=== PATIENT | female | born 2000 | race Caucasian/White ===

== ENCOUNTER 2023-08-05 13:42 | Emergency (ER) | payer OTHER, SELFPAY ==
--- NOTE | ~2023-08-05 | XR_ITS ---
EXAMINATION: XR chest 2V DATE: 08/05/2023 14:11 INDICATION: Right chest pain. TECHNIQUE: Frontal and lateral views of the chest were obtained. COMPARISON: None. FINDINGS: There is no pneumonia, pleural effusion, or pneumothorax. The heart size is normal. IMPRESSION: 1. No acute cardiopulmonary disease. Reviewed, dictated and finalized at location A.
[2023-08-05 13:52] VITALS: BP 133/77; PULSE 90; RESP 18; TEMP 36; O2SAT 100
--- NOTE | 2023-08-05 13:53 | ECG_ITS ---
SEE SCANNED COPY FOR CONFIRMED REPORT MTDD
[2023-08-05 14:07] LABS: Basophils Percent Auto 0.3 % (0.2-1.2); Eosinophils Absolute Auto 0.2 K/mm3 (0-0.3); Eosinophils Percent Auto 1.8 % (0-4.4); Hematocrit 40.1 % (37.0-47.0); Hemoglobin 13.2 g/dL (12.0-15.0); Immature Granulocyte Absolute 0.04 K/mm3 (0.00-0.031); Immature Granulocyte Percent A 0.3 % (0-0.5); Lymphocytes Absolute Auto 3.04 K/mm3 (0.9-3.2); Lymphocytes Percent Auto 26.1 % (18.3-44.2); Mean Corpuscular HGB Conc 32.9 g/dl (32-36); Mean Corpuscular Hemoglobin 29.3 pg (26-34); Mean Corpuscular Volume 88.9 fl (80-100); Mean Platelet Volume 10.7 fl (7.4-10.4); Monocytes Absolute Auto 0.8 K/mm3 (0.1-0.6); Monocytes Percent Auto 6.7 % (2.6-8.5); Neutrophils Absolute Auto 7.5 K/mm3 (1.3-6.7); Neutrophils Percent Auto 64.8 % (45.5-73.1); Platelet Count Result 276 k/mm3 (150-375); Red Blood Count 4.51 M/mm3 (4.2-5.4); Red Cell Distribution Width 12.6 % (11.5-14.5); White Blood Count 11.6 K/mm3 (4.5-10.0)
[2023-08-05 14:31] LABS: Alanine Aminotransferase 37 U/L (6-35); Albumin Level 4.4 g/dL (3.5-5.1); Alkaline Phosphatase 67 U/L (38-126); Anion Gap 8 mmol/L (4-12); Aspartate Amino Transferase 27 U/L (14-36); Bilirubin,Total 0.9 mg/dL (0.2-1.3); Blood Urea Nitrogen 11 mg/dL (7-17); Carbon Dioxide 23 mmol/L (22-30); Chloride 104 mmol/L (98-107); Estimated CRCL calculation 150 ml/min; Estimated Glomerular Filt Rate > 60; Glucose 93 mg/dL (65-110); Lipase 156 U/L (23-300); Sodium 135 mmol/L (137-145)
[2023-08-05 14:32] LABS: Troponin I < 0.012 ng/mL (0.000-0.034)
[2023-08-05 14:37] LABS: INR 0.9; Partial Thromboplastin Time 31.1 Seconds (22.3-36.8); Prothrombin Time 12.9 Seconds (11.1-14.7)
[2023-08-05 14:45] VITALS: BP 114/87; PULSE 94; RESP 15; O2SAT 100
[2023-08-05 14:47] VITALS: BP 114/89; PULSE 92; PULSE 93; RESP 16; TEMP 36.8; O2SAT 99
[2023-08-05] MEDS: Please add drug allergy info to patient profile. 1 EACH XX (14:52)
[2023-08-05 14:56] LABS: Appearance Urine Cloudy (Clear); Bacteria Urine 3+ /hpf; Bilirubin Urine Negative (Negative); Blood Urine Negative (Negative); Color Urine Yellow (Yellow); Glucose Urine UA Negative (Negative); Ketones Urine Negative (Negative); Leukocyte Esterase Ur 1+ LEU/UL (Negative); Nitrate Urine Negative (Negative); Non Pathogenic Casts 0-2; Protein Urine Negative (Negative); RBC Urine 0-2 /hpf (0-2); Specific Grav Ur 1.019 (1.001-1.035); Squamous Epithelial Cell Urine Few /hpf (Few); Urobilinogen Urine 0.2 mg/dL (<2.0); WBC Urine 51-100 /hpf (0-3)
--- NOTE | 2023-08-05 15:04 | ED.CHESTPAIN ---
HPI - Chest Pain General Chief Complaint: Chest Pain Stated Complaint: chest pain Time Seen by Provider: 08/05/23 14:28 History of Present Illness HPI narrative: 23-year-old female history of situational anxiety presents to the emergency room for evaluation of sudden-onset right anterior chest pain. States chest pain is worse with movement and with deep inspiration. Patient denies any known injury or trauma. States the pain does not radiate. Does admit to recent URI symptoms. Denies taking any medications to alleviate her symptoms. Denies nausea vomiting, dizziness or lightheadedness. No known cardiac history Related Data Allergies Allergy/AdvReac Type Severity Reaction Status Date / Time No Known Allergies Allergy Verified 08/05/23 14:53 Review of Systems Review of Systems: CONSTITUTIONAL: Denies fever, chills, or sweats. EYES: Denies visual changes, redness, or discharge. ENT: Denies rhinorrhea, congestion, sore throat, or otalgia. CARDIOVASCULAR: Denies palpitations, or edema. RESPIRATORY: Reports cough GASTROINTESTINAL: Denies abdominal pain, nausea, vomiting, or diarrhea. GENITOURINARY: Denies dysuria or hematuria. SKIN: Denies rash or itching. MUSCULOSKELETAL: Denies back pain, joint pain, or myalgia. NEUROLOGIC: Denies headache, numbness, dizziness, or weakness. PSYCHIATRIC: Denies anxiety or depression. Exam Narrative: GENERAL: Well-appearing, well-nourished, no physical limitations, and in no acute distress. HEAD: Normocephalic, atraumatic. EYES: Conjunctivae normal, PERRLA and EOMI. NECK: Supple. CHEST: Clear to auscultation. No respiratory distress. No wheezes rales or rhonchi. Right anterior chest wall tenderness HEART: Regular rate and rhythm. No murmur heard. Normal peripheral pulses. EXTREMITIES: Normal range of motion. No edema. No clubbing or cyanosis SKIN: Warm, dry, no rash. No noted wounds NEURO: No focal deficits. Alert and oriented x3. MAEW. CN's II-XI intact bilaterally, normal gait PSYCH: Cooperative. Normal mood and affect. Course Vital Signs Vital signs: Vital Signs Temperature 36.0 C L 08/05/23 13:52 Pulse Rate 90 08/05/23 13:52 Respiratory Rate 18 08/05/23 13:52 Blood Pressure 133/77 08/05/23 13:52 Pulse Oximetry 100 08/05/23 13:52 Oxygen Delivery Room Air 08/05/23 13:52 Temperature 36.8 C 08/05/23 14:47 Pulse Rate 93 08/05/23 14:47 Respiratory Rate 16 08/05/23 14:47 Blood Pressure 114/89 08/05/23 14:47 Pulse Oximetry 99 08/05/23 14:47 Oxygen Delivery Room Air 08/05/23 14:47 MDM - Chest Pain MDM Narrative Medical decision making narrative: 23-year-old female from the emergency room with the sudden onset of right anterior chest wall pain. Patient stated a says she has recently had URI symptoms. Chest pain was worse with movement inspiration. Exam shows some volume overload. EKG signs of ischemia. Chest x-ray was negative. Presentation is not consistent with a P. Heart score was 0. Patient likely experiencing costochondritis. Discussed normal course symptoms, treat with ibuprofen. Lab Data 08/05/23 14:00 08/05/23 14:00 Labs: Lab Results 08/05/23 08/05/23 Range/Units 14:00 14:32 WBC 11.6 H (4.5-10.0) K/mm3 RBC 4.51 (4.2-5.4) M/mm3 Hgb 13.2 (12.0-15.0) g/dL Hct 40.1 (37.0-47.0) % MCV 88.9 (80-100) fl MCH 29.3 (26-34) pg MCHC 32.9 (32-36) g/dl RDW 12.6 (11.5-14.5) % Plt Count 276 (150-375) k/mm3 MPV 10.7 H (7.4-10.4) fl Immature Gran % (Auto) 0.3 (0-0.5) % Neut % (Auto) 64.8 (45.5-73.1) % Lymph % (Auto) 26.1 (18.3-44.2) % [place] % (Auto) 6.7 (2.6-8.5) % Eos % (Auto) 1.8 (0-4.4) % Baso % (Auto) 0.3 (0.2-1.2) % Lymph # (Auto) 3.04 (0.9-3.2) K/mm3 [place] # (Auto) 0.8 H (0.1-0.6) K/mm3 Eos # (Auto) 0.2 (0-0.3) K/mm3 Baso # (Auto) 0.0 (0.0-0.1) K/mm3 Abs Immat Gran (auto) 0.04 H (0.00-0.031) K/mm3 Abso
[2023-08-05 15:09] LABS: Add Urine Microscopic? YES
[2023-08-05 15:44] LABS: D Dimer 0.37 ug/mL (<0.48)
[2023-08-05 15:48] VITALS: BP 105/85; PULSE 91; RESP 19; TEMP 36.9; O2SAT 100
== END 2023-08-05 15:49 | disposition home or self-care (01) ==
PROVIDERS: Emergency Medicine; Emergency Provider Nurse Practitioner Family
DX: M94.0 Chondrocostal junction syndrome [Tietze] (principal)
CPT/HCPCS: 36415; 71046; 80053; 81001; 81025; 83690; 84484; 85025; 85380; 85610; 85730; 87077; 87086; 87088; 87186; 93005; 99284

== ENCOUNTER 2024-01-13 11:33 | Emergency (ER) | payer OTHER, SELFPAY ==
--- NOTE | ~2024-01-13 | CT_ITS ---
EXAMINATION: CT abdomen pelvis w con DATE: 01/13/2024 14:46 INDICATION: Abdominal pain. TECHNIQUE: Computed tomography (CT) of the abdomen and pelvis was performed with 100 mL Omnipaque 350 intravenous contrast. Automated exposure control and iterative reconstruction technique were employe d. The dose-length product was 1660.80 mGy-cm. COMPARISON: None. FINDINGS: The visualized portions of the lung bases are clear without pneumonia or pleural effusion. The heart size is normal. No pericardial effusion. The liver, gallbladder, spleen, pancreas, adrenal glands, and kidneys are normal. There are no dilated loops of bowel. The appendix is normal. There ar e no pathologically enlarged lymph nodes. There is physiologic fluid in the pelvis. There is mild tho racic and lumbar spondylosis. IMPRESSION: 1. No etiology for the patient's symptoms. Reviewed, dictated and finalized at location A.
--- NOTE | ~2024-01-13 | US_ITS ---
Limited Abdominal Sonogram: Real-time sonographic imaging of the right upper quadrant was performed. Clinical History: Cholecystitis Findings: The liver appears mildly echogenic, with no evidence of mass lesion or bile duct dilatatio n. Main portal vein demonstrates normal direction of flow. The gallbladder is well distended, and ron ears normal with no evidence of gallstone or wall thickening. The common bile duct measures 4 mm. Th e visualized pancreas, aorta, and IVC are unremarkable. Impression: Unremarkable gallbladder. Diffuse fatty infiltration of liver. Reviewed, dictated and finalized at location M. Impression: Unremarkable gallbladder. Diffuse fatty infiltration of liver.
[2024-01-13 11:43] VITALS: BP 115/80; PULSE 80; RESP 18; TEMP 36.6; O2SAT 100
[2024-01-13 12:42] LABS: BEDSIDEPREGUCG Negative (Negative)
[2024-01-13 12:43] LABS: Bilirubin Urine Negative (Negative); Blood Urine Negative (Negative); Color Urine Yellow (Yellow); Glucose Urine UA Negative (Negative); Ketones Urine Negative (Negative); Leukocyte Esterase Ur Negative LEU/UL (Negative); Nitrate Urine Negative (Negative); Protein Urine Negative (Negative); Specific Grav Ur 1.021 (1.001-1.035); Urobilinogen Urine 0.2 mg/dL (<2.0); pH Urine 5.5 (5.0-9.0)
[2024-01-13 12:45] LABS: Basophils Percent Auto 0.3 % (0.2-1.2); Eosinophils Absolute Auto 0.2 K/mm3 (0-0.3); Eosinophils Percent Auto 1.5 % (0-4.4); Hematocrit 41.5 % (37.0-47.0); Hemoglobin 13.6 g/dL (12.0-15.0); Immature Granulocyte Absolute 0.06 K/mm3 (0.00-0.031); Immature Granulocyte Percent A 0.5 % (0-0.5); Lymphocytes Percent Auto 21.5 % (18.3-44.2); Mean Corpuscular HGB Conc 32.8 g/dl (32-36); Mean Corpuscular Hemoglobin 29.8 pg (26-34); Mean Corpuscular Volume 90.8 fl (80-100); Monocytes Absolute Auto 0.8 K/mm3 (0.1-0.6); Monocytes Percent Auto 6.7 % (2.6-8.5); Neutrophils Absolute Auto 8.7 K/mm3 (1.3-6.7); Neutrophils Percent Auto 69.5 % (45.5-73.1); Platelet Count Result 272 k/mm3 (150-375); Red Blood Count 4.57 M/mm3 (4.2-5.4); Red Cell Distribution Width 13.2 % (11.5-14.5); White Blood Count 12.6 K/mm3 (4.5-10.0)
[2024-01-13 12:50] LABS: Add Urine Microscopic? NO; Appearance Urine Clear (Clear)
[2024-01-13 13:07] LABS: Sodium 127 mmol/L (137-145)
[2024-01-13 13:10] LABS: Alanine Aminotransferase 28 U/L (6-35); Albumin Level 4.2 g/dL (3.5-5.1); Alkaline Phosphatase 76 U/L (38-126); Anion Gap 4 mmol/L (4-12); Aspartate Amino Transferase 23 U/L (14-36); Bilirubin,Total 0.7 mg/dL (0.2-1.3); Blood Urea Nitrogen 11 mg/dL (7-17); Calcium 8.8 mg/dL (8.4-10.2); Carbon Dioxide 27 mmol/L (22-30); Chloride 96 mmol/L (98-107); Estimated CRCL calculation 128 ml/min; Estimated Glomerular Filt Rate > 60; Glucose 89 mg/dL (65-110); Lipase 136 U/L (23-300); Potassium 4.3 mmol/L (3.4-5.0)
[2024-01-13] MEDS: SODIUM CHLORIDE 0.9% IV 1,000 ML 999 ML IV CONT (13:33)
[2024-01-13] MEDS: ONDANSETRON INJ 4 MG/2 ML VIAL IV PUSH (13:33)
[2024-01-13] MEDS: MORPHINE SULFATE (*CRX) 4 MG/ML INJ IV PUSH (13:33)
[2024-01-13 13:48] VITALS: BP 105/59; PULSE 74; RESP 17; O2SAT 100
[2024-01-13 14:01] VITALS: BP 107/60; PULSE 71; RESP 22; O2SAT 100
[2024-01-13 14:31] VITALS: BP 119/72; PULSE 72; RESP 21; O2SAT 100
--- NOTE | 2024-01-13 17:01 | ED.ABDPAIN ---
HPI - Abdominal Pain General Chief Complaint: Abdominal Pain Stated Complaint: right flank Time Seen by Provider: 01/13/24 12:13 History of Present Illness HPI narrative: 23-year-old female with no pertinent past medical history presenting to the emergency department for evaluation of right-sided flank pain. Started last night without any warning and waxes and wanes throughout the day. Associated with nausea, vomiting, diarrhea. His a history of kidney stones. States this feels very different from her normal kidney stone pain. Pain somewhat radiates across her upper abdomen the right-sided but does not cross the left. No associated fever, chills, dysuria, hematuria, vaginal bleeding or discharge. Denies any chance of . Was otherwise in her normal state of health. No trauma or injuries. Related Data Allergies Allergy/AdvReac Type Severity Reaction Status Date / Time No Known Allergies Allergy Verified 01/13/24 12:08 Review of Systems Review of Systems: As reviewed above in HPI Exam Narrative: GENERAL: [Well-appearing, well-nourished, and in no acute distress.] HEAD: [Normocephalic, atraumatic.] EYES: [PERRLA and EOMI.] ENT: Nares clear, no rhinorrhea or epistaxis. Mucous membranes moist. NECK: Supple. CHEST: [Clear to auscultation. No respiratory distress.] HEART: [Regular rate and rhythm]. No murmur heard. [Normal peripheral pulses.] ABDOMEN: [Soft, nondistended], [nontender], [No rigidity or guarding] negative psoas, Rovsing, Gonsalves sign EXTREMITIES: Normal range of motion. [No edema.] SKIN: Warm, dry, no rash. NEURO: [No focal deficits]. Alert and oriented [x3.] PSYCH: [Normal mood and affect.] Course Vital Signs Vital signs: Vital Signs Temperature 36.6 C 01/13/24 11:43 Pulse Rate 80 01/13/24 11:43 Respiratory Rate 18 01/13/24 11:43 Blood Pressure 115/80 01/13/24 11:43 Pulse Oximetry 100 01/13/24 11:43 Oxygen Delivery Room Air 01/13/24 11:43 Temperature 36.6 C 01/13/24 11:43 Pulse Rate 72 01/13/24 14:31 Respiratory Rate 21 H 01/13/24 14:31 Blood Pressure 119/72 01/13/24 14:31 Pulse Oximetry 100 01/13/24 14:31 Oxygen Delivery Room Air 01/13/24 11:43 MDM - Abdominal Pain MDM Narrative Medical decision making narrative: 23-year-old female with history of kidney stones presenting to the emergency department for evaluation of right-sided flank pain that radiates towards the right upper quadrant. Was previously normal state of health. Some associated nausea, vomiting and diarrhea. History of kidney stones but states this feels very dissimilar. No fever, chills. Her vital signs are reassuring without any tachycardia, fever, blood pressure concerns or hypoxia. Workup was ordered including a CBC, CMP, lipase, urinalysis, right upper quadrant ultrasound and she was treated with morphine Zofran and fluid bolus. Differential diagnosis at this time includes cholelithiasis, cholecystitis, pyelonephritis, pyelitis, kidney stones, gastroenteritis. Workup revealed a very minor leukocytosis of 12.6 but no anemia. Electrolytes showed some dehydration with both low sodium and chloride consistent with hypovolemia although normal renal function panel in normal hepatic function panel with a negative lipase. Likely secondary to diarrhea with volume loss and not in acute process otherwise given her lack of other symptoms that would explain this. Urinalysis shows no signs of urinary tract infection or blood, ketones. Abdominal ultrasound shows an unremarkable gallbladder and diffuse fatty infiltrates of the liver. The CT scan was ordered for better delineation but showed no acute process to explain patient's symptoms. test was negative. Patient was re-evaluated had complete symptomatic resolution while here in the emergency department without any recurrence of her symptoms. She had repeat vital signs are work and reassuring. Given her unremarkable workup
== END 2024-01-13 17:23 | disposition home or self-care (01) ==
PROVIDERS: Emergency Provider Student in an Organized Health Care Education/Training Program
DX: R10.11 Right upper quadrant pain (principal); K76.0 Fatty (change of) liver, not elsewhere classified
CPT/HCPCS: 36415; 74177; 76705; 80053; 81003; 81025; 83690; 85025; 96361; 96374; 96375; 99284; J2270; J2405; J7030; Q9967

== ENCOUNTER 2024-02-05 11:02 | Emergency (ER) | payer OTHER, SELFPAY ==
--- NOTE | ~2024-02-05 | CT_ITS ---
EXAMINATION: CT abdomen pelvis wo con DATE: 02/05/2024 13:29 INDICATION: Flank pain. TECHNIQUE: Computed tomography (CT) of the abdomen and pelvis was performed without intravenous contr ast. Automated exposure control and iterative reconstruction technique were employed. The dose-length product was 874.88 mGy-cm. COMPARISON: CT abdomen and pelvis 01/13/2024 FINDINGS: The visualized portions of the lung bases demonstrate calcified right lung nodules and calc ified right hilar lymph nodes, consistent with old granulomatous disease. No pleural effusion. The he art size is normal. No pericardial effusion. The liver, gallbladder, spleen, pancreas, adrenal glands , and kidneys are normal. There is no urolithiasis. There are no dilated loops of bowel. The appendix is normal. There are no pathologically enlarged lymph nodes. There is no free intraperitoneal fluid. There is mild thoracic and lumbar spondylosis. IMPRESSION: 1. No specific etiology for the patient's symptoms. Reviewed, dictated and finalized at location A.
[2024-02-05 11:05] VITALS: BP 135/69; PULSE 84; RESP 18; TEMP 36.2; O2SAT 100
[2024-02-05 13:05] LABS: BEDSIDEPREGUCG Negative (Negative)
[2024-02-05 13:11] LABS: Add Urine Microscopic? YES; Appearance Urine Turbid (Clear); Bacteria Urine 2+ /hpf; Bilirubin Urine Negative (Negative); Blood Urine Negative (Negative); Color Urine Yellow (Yellow); Glucose Urine UA Negative (Negative); Ketones Urine Negative (Negative); Leukocyte Esterase Ur Negative LEU/UL (Negative); Nitrate Urine Negative (Negative); Non Pathogenic Casts 0-2; Protein Urine Negative (Negative); Squamous Epithelial Cell Urine Moderate /hpf (Few); Urobilinogen Urine 0.2 mg/dL (<2.0); pH Urine 8.5 (5.0-9.0)
--- NOTE | 2024-02-05 13:28 | ED_ITS ---
HPI - General Adult General Chief complaint: Urogenital-Female Stated complaint: left back pain Time Seen by Provider: 02/05/24 12:34 History of Present Illness HPI narrative: 23-year-old female with history of ureteral calculi present to the emergency department for evaluation for left flank pain. Patient began developing symptoms of a UTI few days ago. The patient felt that the pain today was worse than her typical urinary tract infection. Related Data Allergies Allergy/AdvReac Type Severity Reaction Status Date / Time No Known Allergies Allergy Verified 02/05/24 13:00 Review of Systems Review of Systems: All systems reviewed & are unremarkable except as noted in HPI and below Exam Narrative: APPEARANCE: Well appearing, no pain, no distress, well-nourished. HEAD: normocephalic, atraumatic. EYES: PERRLA/EOMI, conjunctivae clear. NOSE: Normal no drainage EARS:TMS clear with good light reflex. THROAT: Pharynx clear, no exudate. NECK: Supple. No adenopathy, no masses. RESPIRATORY: Airway patent, respirations nonlabored. Clear to auscultation jonathan aterally, no rales, rhonchi, wheezing. CARDIOVASCULAR: Regular rate and rhythm without murmurs rubs or gallops. ABDOMINAL: Left flank tenderness to palpation MUSCULOSKELETAL: Moves all extremities. Strength/ROM intact, No edema, No calf tenderness. NEURO: Alert. Cranial nerves II through XII intact. Grossly intact SKIN: Warm, dry. Normal Color Course Course Emergency Course: Patient was treated for urinary tract infection Vital Signs Vital signs: Vital Signs Temperature 97.2 F L 02/05/24 11:05 Pulse Rate 84 02/05/24 11:05 Respiratory Rate 18 02/05/24 11:05 Blood Pressure 135/69 02/05/24 11:05 Pulse Oximetry 100 02/05/24 11:05 Oxygen Delivery Room Air 02/05/24 11:05 Temperature 97.2 F L 02/05/24 11:05 Pulse Rate 84 02/05/24 11:05 Respiratory Rate 18 02/05/24 11:05 Blood Pressure 135/69 02/05/24 11:05 Pulse Oximetry 100 02/05/24 11:05 Oxygen Delivery Room Air 02/05/24 11:05 Medical Decision Making [facility] Narrative Medical decision making narrative: 23-year-old female presenting to the emergency department for evaluation of for left flank pain. Patient does have urinary tract infection. Patient also has some mild hematuria. CT scan was ordered his patient feels her current left flank pain is worse than her typical urinary tract infection was concerned she may have a kidney stone. CT scan shows no evidence of the obstructing ureteral calculi. Patient was started on antibiotics for urinary tract infection will be discharged home with antibiotics and Pyridium. Patient is also advised to take Tylenol and ibuprofen for pain control. Differential Diagnosis Differential Diagnosis: UTI, kidney stone, infected kidney stone Vital Signs Vital Signs: Vital Signs Temperature 97.2 F L 02/05/24 11:05 Pulse Rate 84 02/05/24 11:05 Respiratory Rate 18 02/05/24 11:05 Blood Pressure 135/69 02/05/24 11:05 Pulse Oximetry 100 02/05/24 11:05 Oxygen Delivery Room Air 02/05/24 11:05 Temperature 97.2 F L 02/05/24 11:05 Pulse Rate 84 02/05/24 11:05 Respiratory Rate 18 02/05/24 11:05 Blood Pressure 135/69 02/05/24 11:05 Pulse Oximetry 100 02/05/24 11:05 Oxygen Delivery Room Air 02/05/24 11:05 Lab Data Labs: Lab Results 02/05/24 02/05/24 Range/Units 13:01 13:02 Urine Color Yellow (Yellow) Urine Appearance Turbid H (Clear) Urine pH 8.5 (5.0-9.0) Ur Specific [place] 1.020 (1.001-1.035) Urine Protein Negative (Negative) mg/dL Urine Glucose (UA) Negative (Negative) mg/dL Urine Ketones Negative (Negative) mg/dL Ur Blood (Man) Negative (Negative) Urine Nitrate Negative (Negative) Urine Bilirubin Negative (Negative) Urine Urobilinogen 0.2 (<2.0) mg/dL Leukocyte Esterase Rfl Negative (Negative) REX/UL Urine RBC 3-5 H (0-2) /hpf Urine WBC 6-10 H (0-3) /hpf Ur Squamous Epith Cells Moderate (Few) /hpf Urine Bacteria 2+ H /hpf Urine Casts 0-2 POC Urine HCG, Qual Negative (Negative) Discharge Plan Discharge Clinical Impression: Urinary tract infection Patient Disposition: Home, Self-Care Condition: Stable Instructions: Antibiotic Form, Kidney Infection (ED) Additional Instructions: Antibiotic as directed until completed. Tylenol and ibuprofen for pain control. Pyridium as needed for additional pain control. Have close follow-up with your primary care physician. Prescriptions: New cephalexin 500 mg capsule 500 mg PO Q8H 7 Days Qty: 21 0RF phenazopyridine [Pyridium] 100 mg tablet 100 mg PO TID PRN (Reason: pain) Qty: 6 0RF No Action famotidine [Pepcid] 20 mg tablet 20 mg PO BID Qty: 20 0RF dicyclomine 20 mg tablet 20 mg PO TID PRN (Reason: abdominal pain) Qty: 14 0RF Follow-up/Referrals: PHYSICIAN NOT ON STAFF,NONSTAFF [Primary Care Provider] -
[2024-02-05] MEDS: CEPHALEXIN 500 MG CAPSULE PO (14:20)
== END 2024-02-05 14:26 | disposition home or self-care (01) ==
PROVIDERS: Emergency Medicine; Emergency Provider Emergency Medicine
DX: N39.0 Urinary tract infection, site not specified (principal); Z87.442 Personal history of urinary calculi
CPT/HCPCS: 74176; 81001; 81025; 87086; 99284; A9270